=== PATIENT | male | born 1970 | race Caucasian/White ===

== ENCOUNTER 2022-02-26 18:45 | Inpatient (IN) | payer BC, MEDICARE, OTHER ==
[~2022-02-26] VITALS: Ht 172.7 cm; Wt 79.5 kg
[~2022-02-26 18:45] MED LIST: METO-539 PO; OLME1TAB8 PO; REN800 PO
[2022-02-26] MEDS ORDERED: MORPHINE SULFATE 4 MG/ML CPJ (NOT FOR IM USE) IV STA (19:06)
[2022-02-26] MEDS ORDERED: ONDANSETRON HCL 4MG/2ML INJ IV STA (19:06)
[2022-02-26] MEDS ORDERED: IOHEXOL-350 100 ML BOTTLE ONE (19:49)
[2022-02-26 19:52] LABS: INR 1.2; PROTHROMBIN TIME 13.2 sec (9.6-11.0)
[2022-02-26 19:59] LABS: HEMATOCRIT. 31.5 % (42.0-52.0); HEMOGLOBIN. 10.3 g/dL (14.0-18.0); MEAN CORPUSCULAR HEMOGLOBIN 29.9 pg (28.0-32.0); MEAN CORPUSCULAR VOLUME 91.3 fL (80.0-94.0); MEAN PLATELET VOLUME 8.5 fl (7.4-10.4); PLATELET 118 x1000/uL (130-400); RED BLOOD CELL COUNT 3.45 mill/uL (4.7-6.1); RED CELL DISTRIBUTION WIDTH 17.6 % (11.6-14.6)
[2022-02-26 20:49] LABS: CHLORIDE 95 mEq/L (98-107)
[2022-02-26] MEDS ORDERED: ONDANSETRON HCL 4MG/2ML INJ IV NR (21:45)
[2022-02-26] MEDS ORDERED: MORPHINE SULFATE 4 MG/ML CPJ (NOT FOR IM USE) IV NR (21:45)
[2022-02-26 22:15] LABS: PLATELET ESTIMATE DECREASED
[2022-02-27] MEDS ORDERED: SODIUM BICARBONATE 8.4% 1 MEQ/ML 50ML SYR IV SCH (09:15)
[2022-02-27] MEDS ORDERED: INSULIN REGULAR (HUMULIN R) 300UNITS/3ML VIAL IV SCH (09:15)
[2022-02-27] MEDS ORDERED: SODIUM POLYSTYRENE SULFONATE 15 G/60 ML BOT PO SCH (09:15)
[2022-02-27] MEDS ORDERED: MIDAZOLAM HCL 100 MG in DEXT 5% WATER 80 ML IV ONE (09:15)
[2022-02-27] MEDS ORDERED: DEXTROSE 50% WATER 50ML SYRINGE IV SCH (09:15)
[2022-02-27] MEDS ORDERED: ETOMIDATE 2MG/ML 10ML VIAL IV ONE (09:15)
[2022-02-27] MEDS ORDERED: ALBUTEROL (0.083%) 2.5MG/3ML NEB HHN SCH (09:15)
[2022-02-27] MEDS ORDERED: ROCURONIUM BROMIDE 10MG/ML VIAL 5ML IV ONE (09:15)
[2022-02-27] MEDS ORDERED: CALCIUM CHLORIDE 1GM/10ML SYR IV SCH (09:15)
[2022-02-27 09:20] LABS: BG BASE EXCESS 3.9 mmol/L (-2.0-2.0); BG CARBOXYHEMOGLOBIN 1.5 % (0.5-1.5); BG FRACTION INSPIRED OXYGEN 100; BG HCO3 ACT 38.1 mmol/L (22.0-26.0); BG METHEMOGLOBIN 0.3 % (0.0-1.5); BG OXYGEN SATURATION 87.8 % (92.0-98.5); BG OXYHEMOGLOBIN 86.2 % (94.0-97.0); BG PO2 83.7 mmHg (75.0-100.0); BG SAMPLE SITE RIGHT RADIAL; BG VENT MODE MASK - NRB
[2022-02-27] MEDS ORDERED: VECURONIUM BROMIDE 10 MG/VIAL IV ONE (10:15)
[2022-02-27 11:24] LABS: BG BASE EXCESS -1.1 mmol/L (-2.0-2.0); BG CARBOXYHEMOGLOBIN 1.1 % (0.5-1.5); BG DEOXYHEMOGLOBIN 0.3 % (0.0-5.0); BG FRACTION INSPIRED OXYGEN 100; BG HCO3 ACT 24.7 mmol/L (22.0-26.0); BG METHEMOGLOBIN 0.2 % (0.0-1.5); BG OXYGEN SATURATION 99.7 % (92.0-98.5); BG OXYHEMOGLOBIN 98.4 % (94.0-97.0); BG PCO2 45.5 mmHg (35.0-45.0); BG PH 7.352 (7.350-7.450); BG PO2 177.7 mmHg (75.0-100.0); BG SAMPLE SITE LEFT RADIAL; BG TOTAL RESPIRATORY RATE 20 b/min; BG VENT MODE VENT - AC
[2022-02-27 11:30] LABS: HEMATOCRIT 33.3 % (42.0-52.0); MEAN CORPUSCULAR VOLUME 94.3 fL (80.0-94.0); PLATELET 116 x1000/uL (130-400); RED BLOOD CELL COUNT 3.53 mill/uL (4.7-6.1); RED CELL DISTRIBUTION WIDTH 17.8 % (11.6-14.6)
[2022-02-27] MEDS: FENTANYL 2500MCG/250ML PMX 250 ML IV NR (12:30)
[2022-02-27] MEDS: METHYLPREDNISOLONE SOD SUCC 40 MG/ML VIAL IV SCH ×2 (14:45→22:21)
[2022-02-27] MEDS: PANTOPRAZOLE SODIUM 40 MG/VIAL IV SCH (15:00)
[2022-02-27] MEDS: ALBUTEROL (0.083%) 2.5MG/3ML NEB INH SCH ×2 (16:00→20:31)
[2022-02-27 16:18] LABS: HEPATITIS B SURFACE ANTIGEN NEGATIVE
[2022-02-27] MEDS ORDERED: SODIUM POLYSTYRENE SULFONATE 15 G/60 ML BOT PO NR (18:15)
[2022-02-27 18:16] LABS: CHLORIDE 95 mEq/L (98-107)
[2022-02-27] MEDS ORDERED: DEXTROSE 50% WATER 50ML SYRINGE IV ONE (18:35)
[2022-02-27] MEDS ORDERED: DEXTROSE 50% WATER 50ML SYRINGE IV NR ×3 (18:45→22:30)
[2022-02-27] MEDS ORDERED: DEXT 10% WATER 1,000 ML IV SCH (19:00)
[2022-02-27] MEDS: DEXT 10% WATER 1,000 ML IV SCH (22:44)
[2022-02-27] MEDS ORDERED: DEXTROSE 50% WATER 50ML SYRINGE IV PRN (22:45)
[2022-02-27] MEDS ORDERED: PIPERACILLIN/TAZOBACTAM 3.375GM/50ML PREMIX IV SCH (22:45)
[2022-02-27] MEDS ORDERED: VANCOMYCIN 1G PREMIX 200 ML IV NR (23:00)
[2022-02-27] MEDS ORDERED: PIPERACILLIN/TAZ 3.375G PREMIX 50 ML IV NR (23:00)
[2022-02-27] MEDS: BLOOD SUGAR DIAGNOSTIC STRIP TEST SCH (23:16)
[2022-02-28] VITALS (31 sets, daily range): BP systolic 57–165; BP diastolic 35–105
[2022-02-28] MEDS: ALBUTEROL (0.083%) 2.5MG/3ML NEB INH SCH ×6 (00:34→20:41)
[2022-02-28] MEDS: BLOOD SUGAR DIAGNOSTIC STRIP TEST SCH ×12 (01:11→23:00)
[2022-02-28 05:25] LABS: HEMATOCRIT 29.9 % (42.0-52.0); HEMOGLOBIN 9.9 g/dL (14.0-18.0); MEAN CORPUSCULAR HEMOGLOBIN 30.2 pg (28.0-32.0); MEAN CORPUSCULAR VOLUME 91.4 fL (80.0-94.0); PLATELET 103 x1000/uL (130-400); RED BLOOD CELL COUNT 3.27 mill/uL (4.7-6.1); RED CELL DISTRIBUTION WIDTH 17.6 % (11.6-14.6)
[2022-02-28 05:38] LABS: CHLORIDE 94 mEq/L (98-107)
[2022-02-28 05:50] LABS: HDL CHOLESTEROL 41 mg/dL (40-59); LDL CHOLESTEROL 43 mg/dL (5-100); PHOSPHORUS 4.4 mg/dL (2.5-4.9); TOTAL IRON BINDING CAPACITY 172 ug/dL (250-450)
[2022-02-28] MEDS: METHYLPREDNISOLONE SOD SUCC 40 MG/ML VIAL IV SCH ×3 (06:23→22:00)
[2022-02-28] MEDS ORDERED: MIDAZOLAM 100MG/100ML PMX 100 ML IV PRN ×2 (08:00)
[2022-02-28] MEDS: MIDAZOLAM HCL 100 MG in SODIUM CHLORIDE 0.9% 100 ML IV PRN ×2 (08:21→10:00)
[2022-02-28] MEDS ORDERED: MIDAZOLAM HCL 100 MG in SODIUM CHLORIDE 0.9% 100 ML IV PRN (08:30)
[2022-02-28] MEDS ORDERED: PIPERACILLIN/TAZOBACTAM 3.375 G in DEXTROSE 5% WATER 50 ML IV SCH (09:00)
[2022-02-28] MEDS: PANTOPRAZOLE SODIUM 40 MG/VIAL IV SCH (09:53)
[2022-02-28 09:57] LABS: BG BASE EXCESS -1.3 mmol/L (-2.0-2.0); BG CARBOXYHEMOGLOBIN 0.3 % (0.5-1.5); BG DEOXYHEMOGLOBIN 3.3 % (0.0-5.0); BG FRACTION INSPIRED OXYGEN 100; BG HCO3 ACT 23.2 mmol/L (22.0-26.0); BG OXYGEN SATURATION 96.7 % (92.0-98.5); BG OXYHEMOGLOBIN 96.4 % (94.0-97.0); BG PCO2 37.8 mmHg (35.0-45.0); BG PH 7.405 (7.350-7.450); BG PO2 91.1 mmHg (75.0-100.0); BG SAMPLE SITE RIGHT RADIAL; BG TOTAL HEMOGLOBIN 9.9 g/dL (12.0-18.0); BG VENT MODE VENT - AC
[2022-02-28] MEDS: DEXT 10% WATER 1,000 ML IV SCH (10:45)
[2022-02-28] MEDS ORDERED: LIDOCAINE HCL 1% 10 MG/ML 10ML VIAL ONE ×2 (11:38→12:46)
[2022-02-28] MEDS ORDERED: BUPIVACAINE HCL/PF 0.5% (5MG/ML) 10ML ONE (11:39)
[2022-02-28] MEDS ORDERED: SKIN ADHESIVE 0.7 GM EA TOP ONE (11:39)
[2022-02-28] MEDS ORDERED: HEPARIN SODIUM 1,000 UNIT/1ML VIAL IV ONE (11:39)
[2022-02-28] MEDS ORDERED: POLYMYXIN B SULFATE 500000 UNITS/VIAL ONE (11:40)
[2022-02-28] MEDS ORDERED: BACITRACIN 15GM TUBE TOP ONE (11:40)
[2022-02-28] MEDS ORDERED: PAPAVERINE HCL 30 MG/ML 2ML IV ONE (11:40)
[2022-02-28 11:59] LABS: CHLORIDE 97 mEq/L (98-107)
[2022-02-28] MEDS ORDERED: THROMBIN (BOVINE) 5000 UNITS/VIAL TOP ONE (12:21)
[2022-02-28] MEDS ORDERED: PHENYLEPHRINE HCL 10 MG/ML 1ML (IV VIAL) IV ONE (12:32)
[2022-02-28] MEDS ORDERED: ROCURONIUM BROMIDE 10MG/ML VIAL 5ML IV ONE (12:34)
[2022-02-28] MEDS: FENTANYL 2500MCG/250ML PMX 250 ML IV NR (13:43)
[2022-02-28] MEDS ORDERED: FENTANYL 2500MCG/250ML PMX 250 ML IV PRN (17:38)
[2022-02-28] MEDS ORDERED: VANCOMYCIN 750MG PREMIX 150 ML IV NR (18:00)
[2022-02-28] MEDS: PIPERACILLIN/TAZOBACTAM 3.375 G in DEXTROSE 5% WATER 50 ML IV SCH (21:14)
[2022-03-01] VITALS (82 sets, daily range): BP systolic 63–166; BP diastolic 34–120
[2022-03-01] MEDS: ALBUTEROL (0.083%) 2.5MG/3ML NEB INH SCH ×7 (00:35→23:56)
[2022-03-01] MEDS: DEXT 10% WATER 1,000 ML IV SCH (01:38)
[2022-03-01] MEDS: BLOOD SUGAR DIAGNOSTIC STRIP TEST SCH ×6 (01:38→17:03)
[2022-03-01 04:44] LABS: HEMATOCRIT 30.2 % (42.0-52.0); HEMOGLOBIN 10.2 g/dL (14.0-18.0); MEAN CORPUSCULAR HEMOGLOBIN 30.6 pg (28.0-32.0); MEAN CORPUSCULAR VOLUME 90.7 fL (80.0-94.0); PLATELET 101 x1000/uL (130-400); RED BLOOD CELL COUNT 3.33 mill/uL (4.7-6.1); RED CELL DISTRIBUTION WIDTH 17.7 % (11.6-14.6)
[2022-03-01 05:06] LABS: CHLORIDE 91 mEq/L (98-107)
[2022-03-01 05:18] LABS: PHOSPHORUS 6.2 mg/dL (2.5-4.9)
[2022-03-01] MEDS: METHYLPREDNISOLONE SOD SUCC 40 MG/ML VIAL IV SCH ×4 (06:00→21:56)
[2022-03-01 07:59] LABS: BG BASE EXCESS 0.3 mmol/L (-2.0-2.0); BG CARBOXYHEMOGLOBIN 0.3 % (0.5-1.5); BG DEOXYHEMOGLOBIN 1.8 % (0.0-5.0); BG HCO3 ACT 24.3 mmol/L (22.0-26.0); BG METHEMOGLOBIN 0.1 % (0.0-1.5); BG OXYGEN SATURATION 98.2 % (92.0-98.5); BG OXYHEMOGLOBIN 97.8 % (94.0-97.0); BG PCO2 36.9 mmHg (35.0-45.0); BG PH 7.436 (7.350-7.450); BG PO2 110.7 mmHg (75.0-100.0); BG SAMPLE SITE RIGHT RADIAL; BG TOTAL HEMOGLOBIN 11.4 g/dL (12.0-18.0); BG VENT MODE VENT - AC
[2022-03-01] MEDS ORDERED: DEXTROSE 50% WATER 50ML SYRINGE IV PRN (09:00)
[2022-03-01] MEDS: PANTOPRAZOLE SODIUM 40 MG/VIAL IV SCH (09:36)
[2022-03-01] MEDS: PIPERACILLIN/TAZOBACTAM 3.375 G in DEXTROSE 5% WATER 50 ML IV SCH ×2 (09:37→21:00)
[2022-03-01 12:28] LABS: BG BASE EXCESS 2.2 mmol/L (-2.0-2.0); BG CARBOXYHEMOGLOBIN 0.8 % (0.5-1.5); BG DEOXYHEMOGLOBIN 8.3 % (0.0-5.0); BG HCO3 ACT 26.3 mmol/L (22.0-26.0); BG METHEMOGLOBIN 0.1 % (0.0-1.5); BG OXYGEN SATURATION 91.6 % (92.0-98.5); BG OXYHEMOGLOBIN 90.8 % (94.0-97.0); BG PCO2 39.5 mmHg (35.0-45.0); BG PH 7.442 (7.350-7.450); BG PO2 64.1 mmHg (75.0-100.0); BG SAMPLE SITE RIGHT RADIAL; BG TOTAL HEMOGLOBIN 12.1 g/dL (12.0-18.0); BG VENT MODE VENT - AC
[2022-03-01 14:26] LABS: BG CARBOXYHEMOGLOBIN 0.6 % (0.5-1.5); BG DEOXYHEMOGLOBIN 5.6 % (0.0-5.0); BG FRACTION INSPIRED OXYGEN 40; BG HCO3 ACT 25.7 mmol/L (22.0-26.0); BG METHEMOGLOBIN 0.1 % (0.0-1.5); BG OXYGEN SATURATION 94.4 % (92.0-98.5); BG OXYHEMOGLOBIN 93.7 % (94.0-97.0); BG PCO2 41.5 mmHg (35.0-45.0); BG SAMPLE SITE RIGHT RADIAL; BG TOTAL RESPIRATORY RATE 10 b/min; BG VENT MODE VENT - CPAP
[2022-03-01] MEDS: HYDRALAZINE HCL 25MG TABLET PO SCH ×2 (15:07→21:56)
[2022-03-01] MEDS: MORPHINE SULFATE 2 MG/ML CPJ (NOT FOR IM USE) IV PRN (21:57)
[2022-03-01] MEDS ORDERED: NALOXONE HCL 0.4MG/ML VIAL IV PRN (22:00)
[2022-03-01] MEDS ORDERED: MORPHINE SULFATE 4 MG/ML CPJ (NOT FOR IM USE) IV NR (22:30)
[2022-03-02] VITALS (29 sets, daily range): BP systolic 103–166; BP diastolic 19–145
[2022-03-02] MEDS: BLOOD SUGAR DIAGNOSTIC STRIP TEST SCH ×4 (00:48→18:38)
[2022-03-02] MEDS: ALBUTEROL (0.083%) 2.5MG/3ML NEB INH SCH ×3 (04:13→17:09)
[2022-03-02] MEDS: MORPHINE SULFATE 2 MG/ML CPJ (NOT FOR IM USE) IV PRN ×3 (04:15→17:53)
[2022-03-02 05:17] LABS: HEMATOCRIT. 32.2 % (42.0-52.0); HEMOGLOBIN. 10.6 g/dL (14.0-18.0); MEAN CORPUSCULAR HEMOGLOBIN 30.4 pg (28.0-32.0); MEAN CORPUSCULAR VOLUME 91.8 fL (80.0-94.0); MEAN PLATELET VOLUME 8.4 fl (7.4-10.4); PLATELET 98 x1000/uL (130-400); RED CELL DISTRIBUTION WIDTH 17.5 % (11.6-14.6)
[2022-03-02 05:35] LABS: PHOSPHORUS 6.2 mg/dL (2.5-4.9)
[2022-03-02] MEDS: METHYLPREDNISOLONE SOD SUCC 40 MG/ML VIAL IV SCH (06:17)
[2022-03-02] MEDS: HYDRALAZINE HCL 25MG TABLET PO SCH ×2 (06:17→13:01)
[2022-03-02 07:45] LABS: NUCLEATED RED BLOOD CELLS 1 /100 WBC; PLATELET ESTIMATE DECREASED
[2022-03-02 08:39] LABS: BG BASE EXCESS 2.1 mmol/L (-2.0-2.0); BG CARBOXYHEMOGLOBIN 0.5 % (0.5-1.5); BG DEOXYHEMOGLOBIN 3.5 % (0.0-5.0); BG FRACTION INSPIRED OXYGEN 24; BG HCO3 ACT 26.4 mmol/L (22.0-26.0); BG METHEMOGLOBIN 0.2 % (0.0-1.5); BG OXYGEN SATURATION 96.5 % (92.0-98.5); BG OXYHEMOGLOBIN 95.8 % (94.0-97.0); BG PCO2 40.1 mmHg (35.0-45.0); BG PH 7.436 (7.350-7.450); BG PO2 83.9 mmHg (75.0-100.0); BG SAMPLE SITE RIGHT BRACHIAL; BG TOTAL HEMOGLOBIN 11.5 g/dL (12.0-18.0); BG VENT MODE NASAL CANNULA
[2022-03-02] MEDS: SEVELAMER CARBONATE 800 MG TABLET PO SCH ×3 (08:50→18:40)
[2022-03-02] MEDS: PANTOPRAZOLE SODIUM 40 MG/VIAL IV SCH (08:50)
[2022-03-02] MEDS: FOLIC ACID/VITAMIN B COMP W-C TABLET PO SCH (08:50)
[2022-03-02] MEDS: PIPERACILLIN/TAZOBACTAM 3.375 G in DEXTROSE 5% WATER 50 ML IV SCH ×2 (08:51→22:53)
[2022-03-02] MEDS: HYDRALAZINE HCL 50MG TABLET PO SCH (22:32)
[2022-03-03] VITALS (13 sets, daily range): BP systolic 118–167; BP diastolic 62–104
[2022-03-03] MEDS: BLOOD SUGAR DIAGNOSTIC STRIP TEST SCH ×5 (00:36→21:01)
[2022-03-03] MEDS: MORPHINE SULFATE 2 MG/ML CPJ (NOT FOR IM USE) IV PRN ×3 (01:56→23:53)
[2022-03-03] MEDS: SEVELAMER CARBONATE 800 MG TABLET PO SCH ×3 (07:23→17:22)
[2022-03-03 07:25] LABS: HEMATOCRIT. 32.3 % (42.0-52.0); HEMOGLOBIN. 10.7 g/dL (14.0-18.0); MEAN CORPUSCULAR VOLUME 91.1 fL (80.0-94.0); MEAN PLATELET VOLUME 8.3 fl (7.4-10.4); PLATELET 97 x1000/uL (130-400); RED BLOOD CELL COUNT 3.55 mill/uL (4.7-6.1); RED CELL DISTRIBUTION WIDTH 18.1 % (11.6-14.6)
[2022-03-03 07:56] LABS: PHOSPHORUS 7.2 mg/dL (2.5-4.9)
[2022-03-03] MEDS: ALBUTEROL (0.083%) 2.5MG/3ML NEB INH SCH ×3 (08:56→17:58)
[2022-03-03] MEDS: FOLIC ACID/VITAMIN B COMP W-C TABLET PO SCH (10:26)
[2022-03-03] MEDS: PREDNISONE 20MG TABLET PO SCH (10:26)
[2022-03-03] MEDS: PANTOPRAZOLE SODIUM 40 MG/VIAL IV SCH (10:26)
[2022-03-03] MEDS: PIPERACILLIN/TAZOBACTAM 3.375 G in DEXTROSE 5% WATER 50 ML IV SCH ×2 (10:26→21:09)
[2022-03-03 13:16] LABS: PLATELET ESTIMATE DECREASED
[2022-03-03] MEDS: HYDRALAZINE HCL 50MG TABLET PO SCH ×2 (14:00→22:02)
[2022-03-03] MEDS ORDERED: DIPHENHYDRAMINE 50MG/ML VIAL IV NR (14:30)
[2022-03-03] MEDS ORDERED: VANCOMYCIN 500MG PREMIX 100 ML IV NR (15:00)
[2022-03-04] VITALS (7 sets, daily range): BP systolic 151–194; BP diastolic 64–100
[2022-03-04] MEDS ORDERED: METH-818 MT (00:14)
[2022-03-04] MEDS ORDERED: METHADONE HCL 5MG/5ML ORAL SOLN UDC PO SCH (00:15)
[2022-03-04] MEDS ORDERED: METHADONE HCL 10MG TABLET PO SCH ×2 (02:15)
[2022-03-04] MEDS ORDERED: NON FORMULARY PATIENT HOME MED XX SCH (02:30)
[2022-03-04] MEDS ORDERED: *PATIENT'S OWN MEDICATION STORAGE XX SCH (02:30)
[2022-03-04] MEDS: HYDRALAZINE HCL 50MG TABLET PO SCH ×3 (05:32→20:53)
[2022-03-04] MEDS: BLOOD SUGAR DIAGNOSTIC STRIP TEST SCH ×3 (05:32→20:46)
[2022-03-04 07:20] LABS: BASOPHILS % 0.1 % (0.0-2.0); EOSINOPHILS % 0.1 % (0.0-5.0); HEMATOCRIT. 35.7 % (42.0-52.0); HEMOGLOBIN. 11.9 g/dL (14.0-18.0); LYMPHOCYTES % 7.1 % (20.0-50.0); MEAN CORPUSCULAR HEMOGLOBIN 30.3 pg (28.0-32.0); MEAN CORPUSCULAR VOLUME 91.3 fL (80.0-94.0); MEAN PLATELET VOLUME 8.2 fl (7.4-10.4); MONOCYTES % 8.3 % (2.0-8.0); NEUTROPHILS % 84.4 % (40.0-76.0); PLATELET 100 x1000/uL (130-400); RED BLOOD CELL COUNT 3.92 mill/uL (4.7-6.1)
[2022-03-04] MEDS: SEVELAMER CARBONATE 800 MG TABLET PO SCH ×3 (07:40→17:40)
[2022-03-04] MEDS: FOLIC ACID/VITAMIN B COMP W-C TABLET PO SCH (08:19)
[2022-03-04] MEDS: PREDNISONE 20MG TABLET PO SCH (08:19)
[2022-03-04] MEDS: ALBUTEROL (0.083%) 2.5MG/3ML NEB INH SCH (08:28)
[2022-03-04] MEDS: PANTOPRAZOLE SODIUM 40 MG/VIAL IV SCH (08:29)
[2022-03-04] MEDS: PIPERACILLIN/TAZOBACTAM 3.375 G in DEXTROSE 5% WATER 50 ML IV SCH ×2 (08:30→21:11)
[2022-03-04] MEDS: HYDRALAZINE 20MG/ML VIAL IV PRN ×2 (08:42→13:15)
[2022-03-04] MEDS ORDERED: LIDOCAINE HCL 1% 20ML VIAL (Pyxis) INJ ONE (09:22)
[2022-03-04] MEDS ORDERED: BUPIVACAINE HCL/PF 0.5% (5MG/ML) 10ML ONE (09:23)
[2022-03-04] MEDS ORDERED: HEPARIN SODIUM 1,000 UNIT/1ML VIAL IV ONE (09:23)
[2022-03-04] MEDS ORDERED: THROMBIN (BOVINE) 5000 UNITS/VIAL TOP ONE (09:23)
[2022-03-04] MEDS ORDERED: GENTAMICIN SULF 40MG/ML 2ML VIAL ONE (09:24)
[2022-03-04] MEDS ORDERED: POLYMYXIN B SULFATE 500000 UNITS/VIAL ONE (09:24)
[2022-03-04] MEDS ORDERED: SKIN ADHESIVE 0.7 GM EA TOP ONE (09:26)
[2022-03-04] MEDS ORDERED: BACITRACIN 15GM TUBE TOP ONE (09:26)
[2022-03-04] MEDS ORDERED: ALBUTEROL (0.083%) 2.5MG/3ML NEB INH PRN (14:15)
[2022-03-04] MEDS ORDERED: MIDAZOLAM HCL 2 MG/2 ML VIAL ONE (15:30)
[2022-03-04] MEDS ORDERED: PROPOFOL 200MG/20ML VIAL IV ONE (15:30)
[2022-03-04] MEDS ORDERED: MORPHINE SULFATE 4 MG/ML CPJ (NOT FOR IM USE) IV PRN (15:30)
[2022-03-04] MEDS ORDERED: FENTANYL CITRATE/PF 50MCG/ML 2ML VIAL ONE (15:47)
[2022-03-04] MEDS ORDERED: CEFAZOLIN SODIUM 1000MG/VIAL ONE (15:57)
[2022-03-04] MEDS ORDERED: DEXAMETHASONE 4MG/ML 1ML VIAL ONE (15:57)
[2022-03-04] MEDS ORDERED: ONDANSETRON HCL 4MG/2ML INJ ONE (15:57)
[2022-03-04] MEDS ORDERED: HYDROMORPHONE HCL/PF 2MG/ML CPJ IV PRN (16:00)
[2022-03-04] MEDS ORDERED: FENTANYL CITRATE/PF 50MCG/ML 2ML VIAL IV PRN (16:00)
[2022-03-04] MEDS ORDERED: EPHEDRINE SULFATE 50MG/ML VIAL ONE (16:19)
[2022-03-04] MEDS ORDERED: PHENYLEPHRINE HCL 10 MG/ML 1ML (IV VIAL) IV ONE (16:19)
[2022-03-04] MEDS ORDERED: HEPARIN 1000 UNITS/ML 10ML ONE (16:20)
[2022-03-04] MEDS: METHADONE HCL 10MG TABLET PO SCH (20:37)
[2022-03-04] MEDS: MORPHINE SULFATE 2 MG/ML CPJ (NOT FOR IM USE) IV PRN (22:38)
[2022-03-05] VITALS (17 sets, daily range): BP systolic 127–159; BP diastolic 49–93
[2022-03-05] MEDS: BLOOD SUGAR DIAGNOSTIC STRIP TEST SCH ×3 (05:04→16:26)
[2022-03-05] MEDS: HYDRALAZINE HCL 50MG TABLET PO SCH ×2 (05:11→13:27)
[2022-03-05] MEDS: PANTOPRAZOLE SODIUM 40 MG/VIAL IV SCH (08:36)
[2022-03-05] MEDS: SEVELAMER CARBONATE 800 MG TABLET PO SCH ×3 (08:36→16:05)
[2022-03-05] MEDS: FOLIC ACID/VITAMIN B COMP W-C TABLET PO SCH (08:36)
[2022-03-05] MEDS: HYDROMORPHONE HCL/PF 2MG/ML CPJ IV PRN ×3 (08:36→23:39)
[2022-03-05] MEDS: METHADONE HCL 10MG TABLET PO SCH ×2 (08:37→20:37)
[2022-03-05] MEDS: PIPERACILLIN/TAZOBACTAM 3.375 G in DEXTROSE 5% WATER 50 ML IV SCH ×2 (08:37→20:44)
[2022-03-05 08:49] LABS: HEMATOCRIT. 28.6 % (42.0-52.0); HEMOGLOBIN. 9.5 g/dL (14.0-18.0); MEAN CORPUSCULAR HEMOGLOBIN 30.2 pg (28.0-32.0); MEAN CORPUSCULAR VOLUME 90.7 fL (80.0-94.0); MEAN PLATELET VOLUME 8.3 fl (7.4-10.4); PLATELET 87 x1000/uL (130-400); RED BLOOD CELL COUNT 3.15 mill/uL (4.7-6.1); RED CELL DISTRIBUTION WIDTH 17.8 % (11.6-14.6)
[2022-03-05 14:21] LABS: PLATELET ESTIMATE DECREASED
[2022-03-05] MEDS: DIPHENHYDRAMINE 50MG/ML VIAL IV PRN (16:05)
[2022-03-05] MEDS ORDERED: VANCOMYCIN 500MG PREMIX 100 ML IV NR (21:00)
[2022-03-06] VITALS: BP 143/88
[2022-03-06] MEDS: HYDRALAZINE HCL 50MG TABLET PO SCH ×4 (02:07→21:06)
[2022-03-06 04:00] VITALS: BP 161/67
[2022-03-06] MEDS: BLOOD SUGAR DIAGNOSTIC STRIP TEST SCH ×5 (05:17→23:12)
[2022-03-06] MEDS: SEVELAMER CARBONATE 800 MG TABLET PO SCH ×3 (05:17→16:51)
[2022-03-06] MEDS: HYDROMORPHONE HCL/PF 2MG/ML CPJ IV PRN ×4 (05:35→23:44)
[2022-03-06 06:35] LABS: BASOPHILS % 0.2 % (0.0-2.0); EOSINOPHILS % 2.6 % (0.0-5.0); HEMOGLOBIN. 9.9 g/dL (14.0-18.0); LYMPHOCYTES % 9.1 % (20.0-50.0); MEAN CORPUSCULAR HEMOGLOBIN 30.6 pg (28.0-32.0); MEAN CORPUSCULAR VOLUME 89.3 fL (80.0-94.0); MEAN PLATELET VOLUME 8.2 fl (7.4-10.4); MONOCYTES % 9.9 % (2.0-8.0); NEUTROPHILS % 78.2 % (40.0-76.0); PLATELET 99 x1000/uL (130-400); RED BLOOD CELL COUNT 3.25 mill/uL (4.7-6.1); RED CELL DISTRIBUTION WIDTH 17.9 % (11.6-14.6)
[2022-03-06] MEDS: PANTOPRAZOLE SODIUM 40 MG/VIAL IV SCH (08:36)
[2022-03-06] MEDS: PIPERACILLIN/TAZOBACTAM 3.375 G in DEXTROSE 5% WATER 50 ML IV SCH ×2 (08:36→21:03)
[2022-03-06] MEDS: FOLIC ACID/VITAMIN B COMP W-C TABLET PO SCH (08:36)
[2022-03-06] MEDS: METHADONE HCL 10MG TABLET PO SCH ×2 (08:37→20:55)
[2022-03-06] MEDS: HYDRALAZINE 20MG/ML VIAL IV PRN (08:38)
[2022-03-06 08:48] VITALS: BP 192/66
[2022-03-06 12:20] VITALS: BP 158/58
[2022-03-06 16:00] VITALS: BP 141/65
[2022-03-06 20:00] VITALS: BP 134/52
[2022-03-07] VITALS (17 sets, daily range): BP systolic 132–195; BP diastolic 47–99
[2022-03-07] MEDS: BLOOD SUGAR DIAGNOSTIC STRIP TEST SCH ×3 (05:07→18:00)
[2022-03-07] MEDS: HYDRALAZINE HCL 50MG TABLET PO SCH ×3 (05:16→22:03)
[2022-03-07] MEDS: HYDROMORPHONE HCL/PF 2MG/ML CPJ IV PRN ×3 (05:50→18:30)
[2022-03-07 06:42] LABS: HEMATOCRIT 30.9 % (42.0-52.0); HEMOGLOBIN 10.2 g/dL (14.0-18.0); MEAN CORPUSCULAR HEMOGLOBIN 30.1 pg (28.0-32.0); MEAN CORPUSCULAR VOLUME 90.9 fL (80.0-94.0); PLATELET 95 x1000/uL (130-400); RED BLOOD CELL COUNT 3.39 mill/uL (4.7-6.1); RED CELL DISTRIBUTION WIDTH 18.4 % (11.6-14.6)
[2022-03-07 06:58] LABS: PHOSPHORUS 6.7 mg/dL (2.5-4.9)
[2022-03-07] MEDS: SEVELAMER CARBONATE 800 MG TABLET PO SCH ×3 (08:27→17:06)
[2022-03-07] MEDS: FOLIC ACID/VITAMIN B COMP W-C TABLET PO SCH (08:27)
[2022-03-07] MEDS: PIPERACILLIN/TAZOBACTAM 3.375 G in DEXTROSE 5% WATER 50 ML IV SCH ×2 (08:27→22:01)
[2022-03-07] MEDS: PANTOPRAZOLE SODIUM 40 MG/VIAL IV SCH (08:28)
[2022-03-07] MEDS: METHADONE HCL 10MG TABLET PO SCH ×2 (08:28→22:03)
[2022-03-07] MEDS: DIPHENHYDRAMINE 50MG/ML VIAL IV PRN (09:56)
[2022-03-07] MEDS ORDERED: DOXY100C5 MT (10:30)
[2022-03-07] MEDS ORDERED: DESMOPRESSIN ACETATE IVPB 24 MCG in SODIUM CHLORIDE 0.9% 50 ML IV NR (11:00)
[2022-03-07] MEDS ORDERED: VANCOMYCIN 500MG PREMIX 100 ML IV NR (14:00)
[2022-03-07] MEDS: CLONIDINE 0.1MG TABLET PO PRN (22:50)
[2022-03-08] VITALS (7 sets, daily range): BP systolic 144–200; BP diastolic 62–85
[2022-03-08] MEDS: HYDRALAZINE 20MG/ML VIAL IV PRN (02:07)
[2022-03-08] MEDS: HYDROMORPHONE HCL/PF 2MG/ML CPJ IV PRN ×3 (02:07→13:29)
[2022-03-08] MEDS: BLOOD SUGAR DIAGNOSTIC STRIP TEST SCH ×4 (06:00→18:00)
[2022-03-08] MEDS: HYDRALAZINE HCL 50MG TABLET PO SCH (06:44)
[2022-03-08] MEDS: PANTOPRAZOLE SODIUM 40 MG/VIAL IV SCH (09:11)
[2022-03-08] MEDS: PIPERACILLIN/TAZOBACTAM 3.375 G in DEXTROSE 5% WATER 50 ML IV SCH ×2 (09:12→20:20)
[2022-03-08] MEDS: FOLIC ACID/VITAMIN B COMP W-C TABLET PO SCH (09:12)
[2022-03-08] MEDS: CLONIDINE 0.1MG TABLET PO PRN (09:12)
[2022-03-08] MEDS: SEVELAMER CARBONATE 800 MG TABLET PO SCH ×2 (09:12→16:54)
[2022-03-08] MEDS: METHADONE HCL 10MG TABLET PO SCH ×2 (09:14→20:21)
[2022-03-08] MEDS: NIFEDIPINE 10MG CAPSULE PO SCH ×2 (13:23→20:22)
[2022-03-08] MEDS: HYDRALAZINE HCL 25MG TABLET PO SCH ×2 (13:23→20:22)
[2022-03-08] MEDS ORDERED: LABETALOL 5MG/ML SYR 20 MG/4 ML SYRINGE IV NR (15:00)
[2022-03-08] MEDS ORDERED: PRO1 PO ×2 (15:02)
[2022-03-08] MEDS ORDERED: HYDR-4134 PO ×2 (15:02)
== END 2022-03-08 22:20 | disposition home or self-care (01) | DRG 252 ==
LOC: ER 18:52 → MICUSO 23:37 → EDBEDREQTM 23:45 → EDBEDREQ 23:45 → EDBEDREQSVC 02-27 09:30 → EDBEDREQTM 02-27 09:30 → MICUNO 02-28 13:03 → 8WST 03-02 14:48
PROVIDERS: ADMIT Internal Medicine; ATTEND Internal Medicine
PROC: 03170ZD Bypass Right Brachial Artery to Upper Arm Vein, Open Approach (ICD-10-PCS; 2022-02-26)
PROC: 06HM33Z Insertion of Infusion Device into Right Femoral Vein, Percutaneous Approach (ICD-10-PCS; 2022-02-26)
PROC: 5A1945Z Respiratory Ventilation, 24-96 Consecutive Hours (ICD-10-PCS; principal; 2022-02-27)
PROC: 0BH17EZ Insertion of Endotracheal Airway into Trachea, Via Natural or Artificial Opening (ICD-10-PCS; 2022-02-27)
PROC: 05LF0ZZ Occlusion of Left Cephalic Vein, Open Approach (ICD-10-PCS; 2022-02-28)
PROC: 5A1D70Z Performance of Urinary Filtration, Intermittent, Less than 6 Hours Per Day (ICD-10-PCS; 2022-02-28)
PROC: 06HM33Z Insertion of Infusion Device into Right Femoral Vein, Percutaneous Approach (ICD-10-PCS; 2022-03-01)
PROC: 5A1D70Z Performance of Urinary Filtration, Intermittent, Less than 6 Hours Per Day (ICD-10-PCS; 2022-03-01)
PROC: 5A1D70Z Performance of Urinary Filtration, Intermittent, Less than 6 Hours Per Day (ICD-10-PCS; 2022-03-03)
PROC: 5A1D70Z Performance of Urinary Filtration, Intermittent, Less than 6 Hours Per Day (ICD-10-PCS; 2022-03-05)
PROC: 5A1D70Z Performance of Urinary Filtration, Intermittent, Less than 6 Hours Per Day (ICD-10-PCS; 2022-03-07)
DX: T82.898A Other specified complication of vascular prosthetic devices, implants and grafts, initial encounter (principal); J96.02 Acute respiratory failure with hypercapnia; N18.6 End stage renal disease; I82.B12 Acute embolism and thrombosis of left subclavian vein; I12.0 Hypertensive chronic kidney disease with stage 5 chronic kidney disease or end stage renal disease; N17.9 Acute kidney failure, unspecified; J81.1 Chronic pulmonary edema; J90 Pleural effusion, not elsewhere classified; E11.22 Type 2 diabetes mellitus with diabetic chronic kidney disease; E87.5 Hyperkalemia; E87.70 Fluid overload, unspecified; Z20.822 Contact with and (suspected) exposure to COVID-19; I16.0 Hypertensive urgency; Z99.2 Dependence on renal dialysis; I51.7 Cardiomegaly; I25.10 Atherosclerotic heart disease of native coronary artery without angina pectoris; E11.649 Type 2 diabetes mellitus with hypoglycemia without coma; D63.1 Anemia in chronic kidney disease; Z86.718 Personal history of other venous thrombosis and embolism; Z95.1 Presence of aortocoronary bypass graft; Y92.89 Other specified places as the place of occurrence of the external cause; Y83.9 Surgical procedure, unspecified as the cause of abnormal reaction of the patient, or of later complication, without mention of misadventure at the time of the procedure
CPT/HCPCS: 31500; 36415; 36556; 36600; 71045; 73206; 76937; 80048; 80053; 80061; 80202; 82375; 82728; 82805; 82962; 83036; 83540; 83550; 83605; 83735; 84100; 84132; 84145; 85025; 85027; 86705; 86709; 86803; 87340; 87426; 88300; 90935; 93005; 93306; 93971; 94003; 94640; 97162; 97166; 99285; A4565; C1725; C1750; C1752; C1769; C1893; C9113; J0360; J0690; J1100; J1170; J1200; J1580; J1644; J1815; J2250; J2270; J2370; J2405; J2440; J2543; J2597; J2704; J2920; J3010; J3370; J3490; J7030; J7050; J7060; J7512; L8514; Q9967

== ENCOUNTER 2022-03-28 00:12 | Inpatient (IN) | payer BC, MEDICARE ==
[2022-03-28] VITALS: BP 139/66
[~2022-03-28] VITALS: Ht 172.7 cm; Wt 77.2 kg
[~2022-03-28 00:12] MED LIST changes: +DOXY100C5 MT; +METH-818 MT
[2022-03-28] MEDS ORDERED: MORPHINE SULFATE 4 MG/ML CPJ (NOT FOR IM USE) IV NR (05:24)
[2022-03-28 05:43] LABS: MEAN CORPUSCULAR HEMOGLOBIN 30.4 pg (28.0-32.0); MEAN CORPUSCULAR VOLUME 91.3 fL (80.0-94.0); MEAN PLATELET VOLUME 7.3 fl (7.4-10.4); PLATELET 215 x1000/uL (130-400); RED BLOOD CELL COUNT 2.96 mill/uL (4.7-6.1); RED CELL DISTRIBUTION WIDTH 17.5 % (11.6-14.6)
[2022-03-28 06:03] LABS: CHLORIDE 100 mEq/L (98-107)
[2022-03-28] MEDS ORDERED: HYDROCODONE/ACETAMINOPHEN 7.5/325MG TABLET PO ONE (06:45)
[2022-03-28 06:46] LABS: PLATELET ESTIMATE NORMAL
[2022-03-28] MEDS ORDERED: HYDROMORPHONE HCL/PF 2MG/ML CPJ IM ONE (08:00)
[2022-03-28] MEDS ORDERED: ALTEPLASE 2MG/VIAL ITC NR (09:45)
[2022-03-28] MEDS ORDERED: ACETAMINOPHEN 325MG TABLET PO PRN (10:30)
[2022-03-28] MEDS ORDERED: MAGNESIUM/ALUMINUM HYDROXIDE/SIMETHICONE 30ML UDC PO PRN (10:30)
[2022-03-28] MEDS ORDERED: DOCUSATE SODIUM 100MG CAPSULE PO PRN (10:30)
[2022-03-28] MEDS ORDERED: IPRATROPIUM/ALBUTEROL 0.5-3(2.5)MG/3ML NEB NEB PRN (10:30)
[2022-03-28] MEDS ORDERED: GUAIFENESIN 200MG/10ML SUGAR FREE UDC PO PRN (10:30)
[2022-03-28] MEDS ORDERED: ONDANSETRON HCL 4MG/2ML INJ IV PRN (10:30)
[2022-03-28] MEDS ORDERED: ZOLPIDEM TARTRATE 5MG TABLET PO PRN (10:30)
[2022-03-28] MEDS ORDERED: NALOXONE HCL 0.4MG/ML VIAL IV PRN (10:45)
[2022-03-28] MEDS ORDERED: NITROGLYCERIN 0.4MG TABLET SL SL PRN (11:00)
[2022-03-28] MEDS: HYDROCODONE/ACETAMINOPHEN 10/325MG TABLET PO PRN ×2 (11:24→18:06)
[2022-03-28 11:26] LABS: T4 FREE 0.59 ng/dL (0.76-1.46)
[2022-03-28 11:59] LABS: FOLIC ACID (FOLATE) SERUM 9.4 ng/mL (>5.38)
[2022-03-28] MEDS: ENOXAPARIN 30MG/0.3ML SYR SUBCUT SCH (12:21)
[2022-03-28] MEDS: CLONIDINE 0.1MG TABLET PO PRN ×2 (13:29→18:06)
[2022-03-28] MEDS: SEVELAMER CARBONATE 800 MG TABLET PO SCH ×2 (13:38→18:06)
[2022-03-28 13:53] LABS: HEPATITIS B SURFACE ANTIGEN NEGATIVE
[2022-03-28] MEDS ORDERED: LIDOCAINE HCL 1% 10 MG/ML 10ML VIAL ONE (14:15)
[2022-03-28] MEDS ORDERED: IOHEXOL-350 100 ML BOTTLE ONE (15:02)
[2022-03-28 17:09] LABS: CREATINE KINASE 65 IU/L (39-308); CREATINE KINASE MB FRACTION 2.3 ng/mL (0.5-3.6)
[2022-03-28 20:00] VITALS: BP 145/70
[2022-03-28] MEDS: AMLODIPINE 5MG TABLET PO SCH (21:17)
[2022-03-28] MEDS: FAMOTIDINE 20MG TABLET PO SCH (21:17)
[2022-03-28] MEDS: MORPHINE SULFATE 2 MG/ML CPJ (NOT FOR IM USE) IV PRN (21:18)
[2022-03-29] VITALS (14 sets, daily range): BP systolic 124–159; BP diastolic 62–97
[2022-03-29] MEDS: MORPHINE SULFATE 2 MG/ML CPJ (NOT FOR IM USE) IV PRN (04:00)
[2022-03-29] MEDS: HYDROCODONE/ACETAMINOPHEN 10/325MG TABLET PO PRN ×2 (08:55→17:18)
[2022-03-29] MEDS ORDERED: HYDROMORPHONE HCL/PF 2MG/ML CPJ IV PRN (09:15)
[2022-03-29] MEDS: DIPHENHYDRAMINE 25MG CAPSULE PO PRN ×2 (09:47→21:12)
[2022-03-29 10:42] LABS: BASOPHILS % 1.2 % (0.0-2.0); EOSINOPHILS % 1.3 % (0.0-5.0); HEMATOCRIT. 27.2 % (42.0-52.0); HEMOGLOBIN. 8.8 g/dL (14.0-18.0); LYMPHOCYTES % 18.4 % (20.0-50.0); MEAN CORPUSCULAR HEMOGLOBIN 29.5 pg (28.0-32.0); MEAN CORPUSCULAR VOLUME 90.9 fL (80.0-94.0); MEAN PLATELET VOLUME 7.7 fl (7.4-10.4); MONOCYTES % 13.2 % (2.0-8.0); NEUTROPHILS % 65.9 % (40.0-76.0); PLATELET 213 x1000/uL (130-400); RED BLOOD CELL COUNT 2.99 mill/uL (4.7-6.1); RED CELL DISTRIBUTION WIDTH 18.2 % (11.6-14.6)
[2022-03-29 10:47] LABS: CHLORIDE 95 mEq/L (98-107)
[2022-03-29 10:59] LABS: PHOSPHORUS 7.5 mg/dL (2.5-4.9)
[2022-03-29] MEDS ORDERED: METHADONE HCL 10MG TABLET PO NR (11:30)
[2022-03-29] MEDS: LEVOTHYROXINE SODIUM 50MCG TABLET PO SCH (11:38)
[2022-03-29] MEDS: ASPIRIN 325MG EC TABLET PO SCH (11:38)
[2022-03-29] MEDS: GABAPENTIN 100MG CAPSULE PO SCH ×3 (11:39→21:12)
[2022-03-29] MEDS: AMLODIPINE 5MG TABLET PO SCH ×2 (11:39→21:13)
[2022-03-29] MEDS: SEVELAMER CARBONATE 800 MG TABLET PO SCH ×3 (11:39→17:20)
[2022-03-29] MEDS: ENOXAPARIN 30MG/0.3ML SYR SUBCUT SCH (11:40)
[2022-03-29] MEDS: FAMOTIDINE 20MG TABLET PO SCH (21:13)
[2022-03-29] MEDS: METHADONE HCL 10MG TABLET PO SCH (21:13)
[2022-03-30] VITALS (15 sets, daily range): BP systolic 93–189; BP diastolic 63–99
[2022-03-30] MEDS: HYDROCODONE/ACETAMINOPHEN 10/325MG TABLET PO PRN ×2 (06:27→21:53)
[2022-03-30] MEDS: LEVOTHYROXINE SODIUM 50MCG TABLET PO SCH (06:28)
[2022-03-30] MEDS: CLONIDINE 0.1MG TABLET PO PRN ×2 (06:28→18:24)
[2022-03-30] MEDS: GABAPENTIN 100MG CAPSULE PO SCH ×3 (06:28→21:29)
[2022-03-30 07:15] LABS: HEMOGLOBIN. 9.2 g/dL (14.0-18.0); MEAN CORPUSCULAR HEMOGLOBIN 29.9 pg (28.0-32.0); MEAN CORPUSCULAR VOLUME 90.6 fL (80.0-94.0); MEAN PLATELET VOLUME 7.6 fl (7.4-10.4); PLATELET 206 x1000/uL (130-400); RED BLOOD CELL COUNT 3.09 mill/uL (4.7-6.1); RED CELL DISTRIBUTION WIDTH 17.8 % (11.6-14.6)
[2022-03-30 07:50] LABS: CHLORIDE 97 mEq/L (98-107)
[2022-03-30] MEDS: METHADONE HCL 10MG TABLET PO SCH ×2 (08:32→20:17)
[2022-03-30] MEDS: ENOXAPARIN 30MG/0.3ML SYR SUBCUT SCH (08:32)
[2022-03-30] MEDS: AMLODIPINE 5MG TABLET PO SCH ×2 (08:32→20:17)
[2022-03-30] MEDS: SEVELAMER CARBONATE 800 MG TABLET PO SCH ×3 (08:33→17:33)
[2022-03-30] MEDS: ASPIRIN 325MG EC TABLET PO SCH (08:33)
[2022-03-30] MEDS: DIPHENHYDRAMINE 25MG CAPSULE PO PRN (09:32)
[2022-03-30] MEDS ORDERED: ALBUTEROL (0.083%) 2.5MG/3ML NEB HHN PRN (13:00)
[2022-03-30] MEDS ORDERED: IPRATROPIUM BROMIDE (0.02%) 0.5MG/2.5ML NEB HHN PRN (13:00)
[2022-03-30] MEDS: MUPIROCIN 2% OINT 22GM NS SCH ×2 (13:12→20:17)
[2022-03-30 18:21] LABS: PLATELET ESTIMATE NORMAL
[2022-03-30] MEDS: FAMOTIDINE 20MG TABLET PO SCH (20:17)
[2022-03-31] VITALS (11 sets, daily range): BP systolic 93–170; BP diastolic 47–85
[2022-03-31] MEDS: HYDROCODONE/ACETAMINOPHEN 10/325MG TABLET PO PRN ×4 (02:30→20:17)
[2022-03-31] MEDS: LEVOTHYROXINE SODIUM 50MCG TABLET PO SCH (06:20)
[2022-03-31] MEDS: GABAPENTIN 100MG CAPSULE PO SCH ×3 (06:24→21:02)
[2022-03-31] MEDS: METHADONE HCL 10MG TABLET PO SCH ×2 (08:25→20:16)
[2022-03-31] MEDS: SEVELAMER CARBONATE 800 MG TABLET PO SCH ×3 (08:25→18:35)
[2022-03-31] MEDS: AMLODIPINE 5MG TABLET PO SCH ×2 (08:25→20:40)
[2022-03-31] MEDS: ASPIRIN 325MG EC TABLET PO SCH (08:25)
[2022-03-31] MEDS: ENOXAPARIN 30MG/0.3ML SYR SUBCUT SCH (08:26)
[2022-03-31] MEDS: MUPIROCIN 2% OINT 22GM NS SCH ×2 (08:26→20:56)
[2022-03-31] MEDS: DIPHENHYDRAMINE 25MG CAPSULE PO PRN (10:03)
[2022-03-31 18:06] LABS: HEMATOCRIT. 25.7 % (42.0-52.0); HEMOGLOBIN. 8.3 g/dL (14.0-18.0); MEAN CORPUSCULAR HEMOGLOBIN 29.4 pg (28.0-32.0); MEAN CORPUSCULAR VOLUME 91.4 fL (80.0-94.0); MEAN PLATELET VOLUME 7.6 fl (7.4-10.4); PLATELET 172 x1000/uL (130-400); RED BLOOD CELL COUNT 2.82 mill/uL (4.7-6.1); RED CELL DISTRIBUTION WIDTH 17.8 % (11.6-14.6)
[2022-03-31 18:39] LABS: PLATELET ESTIMATE NORMAL
[2022-03-31] MEDS: FAMOTIDINE 20MG TABLET PO SCH (20:39)
[2022-04-01] VITALS (15 sets, daily range): BP systolic 121–168; BP diastolic 43–98
[2022-04-01] MEDS: HYDROCODONE/ACETAMINOPHEN 10/325MG TABLET PO PRN ×3 (00:51→18:24)
[2022-04-01] MEDS: GABAPENTIN 100MG CAPSULE PO SCH ×3 (05:03→20:29)
[2022-04-01] MEDS: LEVOTHYROXINE SODIUM 75MCG TABLET PO SCH (06:27)
[2022-04-01 07:13] LABS: HEMATOCRIT. 24.2 % (42.0-52.0); HEMOGLOBIN. 7.8 g/dL (14.0-18.0); MEAN CORPUSCULAR HEMOGLOBIN 29.6 pg (28.0-32.0); MEAN CORPUSCULAR VOLUME 91.5 fL (80.0-94.0); MEAN PLATELET VOLUME 7.5 fl (7.4-10.4); PLATELET 155 x1000/uL (130-400); RED BLOOD CELL COUNT 2.65 mill/uL (4.7-6.1); RED CELL DISTRIBUTION WIDTH 17.4 % (11.6-14.6)
[2022-04-01] MEDS: SEVELAMER CARBONATE 800 MG TABLET PO SCH ×3 (07:40→18:25)
[2022-04-01] MEDS: MUPIROCIN 2% OINT 22GM NS SCH (09:00)
[2022-04-01] MEDS ORDERED: GABA300C MT (09:05)
[2022-04-01] MEDS ORDERED: LEVO88TA2 MT (09:06)
[2022-04-01] MEDS: DIPHENHYDRAMINE 25MG CAPSULE PO PRN (10:40)
[2022-04-01] MEDS: METHADONE HCL 10MG TABLET PO SCH ×2 (14:25→20:30)
[2022-04-01] MEDS: AMLODIPINE 5MG TABLET PO SCH ×2 (14:25→20:30)
[2022-04-01] MEDS ORDERED: ENOXAPARIN 80MG/0.8ML SYR SUBCUT NR (17:00)
[2022-04-01 18:24] LABS: INR 1.1; PROTHROMBIN TIME 11.9 sec (9.6-11.0)
[2022-04-01] MEDS: FAMOTIDINE 20MG TABLET PO SCH (20:30)
[2022-04-02] VITALS (7 sets, daily range): BP systolic 99–185; BP diastolic 47–83
[2022-04-02] MEDS: CLONIDINE 0.1MG TABLET PO PRN (01:30)
[2022-04-02] MEDS: MUPIROCIN 2% OINT 22GM NS SCH ×3 (01:32→21:20)
[2022-04-02] MEDS: GABAPENTIN 100MG CAPSULE PO SCH ×3 (05:32→21:06)
[2022-04-02] MEDS: LEVOTHYROXINE SODIUM 75MCG TABLET PO SCH (05:32)
[2022-04-02 07:13] LABS: HEMATOCRIT. 24.6 % (42.0-52.0); HEMOGLOBIN. 8.1 g/dL (14.0-18.0); MEAN CORPUSCULAR HEMOGLOBIN 29.9 pg (28.0-32.0); MEAN CORPUSCULAR VOLUME 90.6 fL (80.0-94.0); MEAN PLATELET VOLUME 7.8 fl (7.4-10.4); PLATELET 162 x1000/uL (130-400); RED BLOOD CELL COUNT 2.71 mill/uL (4.7-6.1)
[2022-04-02 07:29] LABS: PHOSPHORUS 5.8 mg/dL (2.5-4.9)
[2022-04-02] MEDS: AMLODIPINE 5MG TABLET PO SCH ×2 (08:05→21:06)
[2022-04-02] MEDS: METHADONE HCL 10MG TABLET PO SCH ×2 (08:06→21:07)
[2022-04-02] MEDS: SEVELAMER CARBONATE 800 MG TABLET PO SCH ×3 (08:06→17:01)
[2022-04-02] MEDS: DIPHENHYDRAMINE 25MG CAPSULE PO PRN (09:51)
[2022-04-02 13:41] LABS: PLATELET ESTIMATE NORMAL
[2022-04-02] MEDS: ACETAMINOPHEN 325MG TABLET PO PRN ×2 (14:29→23:23)
[2022-04-02 16:30] LABS: PLATELET ESTIMATE NORMAL
[2022-04-02] MEDS: ENOXAPARIN 80MG/0.8ML SYR SUBCUT SCH (17:21)
[2022-04-02] MEDS: FAMOTIDINE 20MG TABLET PO SCH (21:07)
[2022-04-03] VITALS (14 sets, daily range): BP systolic 110–156; BP diastolic 46–103
[2022-04-03] MEDS: HYDROCODONE/ACETAMINOPHEN 10/325MG TABLET PO PRN (02:56)
[2022-04-03] MEDS: SEVELAMER CARBONATE 800 MG TABLET PO SCH ×3 (06:13→17:42)
[2022-04-03] MEDS: LEVOTHYROXINE SODIUM 75MCG TABLET PO SCH (06:13)
[2022-04-03] MEDS: GABAPENTIN 100MG CAPSULE PO SCH (06:14)
[2022-04-03] MEDS: AMLODIPINE 5MG TABLET PO SCH ×2 (08:54→21:10)
[2022-04-03] MEDS: CLONIDINE 0.1MG TABLET PO PRN (08:54)
[2022-04-03] MEDS: METHADONE HCL 10MG TABLET PO SCH ×2 (08:54→21:09)
[2022-04-03] MEDS: MUPIROCIN 2% OINT 22GM NS SCH ×2 (08:55→21:05)
[2022-04-03 11:10] LABS: HEMATOCRIT. 24.2 % (42.0-52.0); HEMOGLOBIN. 7.8 g/dL (14.0-18.0); MEAN CORPUSCULAR HEMOGLOBIN 29.4 pg (28.0-32.0); MEAN CORPUSCULAR VOLUME 91.2 fL (80.0-94.0); MEAN PLATELET VOLUME 7.9 fl (7.4-10.4); PLATELET 153 x1000/uL (130-400); RED BLOOD CELL COUNT 2.65 mill/uL (4.7-6.1); RED CELL DISTRIBUTION WIDTH 17.6 % (11.6-14.6)
[2022-04-03] MEDS: GABAPENTIN 300MG CAPSULE PO SCH ×2 (13:21→21:10)
[2022-04-03] MEDS: ENOXAPARIN 80MG/0.8ML SYR SUBCUT SCH (17:42)
[2022-04-03] MEDS: FAMOTIDINE 20MG TABLET PO SCH (21:10)
[2022-04-04] VITALS (11 sets, daily range): BP systolic 112–160; BP diastolic 36–115
[2022-04-04] MEDS: GABAPENTIN 300MG CAPSULE PO SCH ×3 (05:37→22:00)
[2022-04-04] MEDS: LEVOTHYROXINE SODIUM 75MCG TABLET PO SCH (06:12)
[2022-04-04] MEDS: SEVELAMER CARBONATE 800 MG TABLET PO SCH ×4 (07:40→17:40)
[2022-04-04] MEDS: AMLODIPINE 5MG TABLET PO SCH ×3 (08:37→21:00)
[2022-04-04] MEDS: MUPIROCIN 2% OINT 22GM NS SCH ×2 (08:38→22:00)
[2022-04-04] MEDS: ACETAMINOPHEN 325MG TABLET PO PRN (09:30)
[2022-04-04] MEDS: CLONIDINE 0.1MG TABLET PO PRN (09:30)
[2022-04-04] MEDS: DIPHENHYDRAMINE 25MG CAPSULE PO PRN (11:15)
[2022-04-04] MEDS ORDERED: THROMBIN (BOVINE) 5000 UNITS/VIAL TOP ONE (12:51)
[2022-04-04] MEDS ORDERED: POLYMYXIN B SULFATE 500000 UNITS/VIAL ONE (12:51)
[2022-04-04] MEDS ORDERED: LIDOCAINE HCL 1% 20ML VIAL (Pyxis) INJ ONE (12:51)
[2022-04-04] MEDS ORDERED: HEPARIN SODIUM 1,000 UNIT/1ML VIAL IV ONE (12:51)
[2022-04-04] MEDS ORDERED: BUPIVACAINE HCL/PF 0.5% (5MG/ML) 10ML ONE ×2 (12:51→12:53)
[2022-04-04] MEDS ORDERED: DEXTROSE 50% WATER 50ML SYRINGE IV NR (14:00)
[2022-04-04 14:01] LABS: PLATELET ESTIMATE NORMAL
[2022-04-04] MEDS ORDERED: ETOMIDATE 2MG/ML 10ML VIAL IV ONE (14:32)
[2022-04-04] MEDS ORDERED: FENTANYL CITRATE/PF 50MCG/ML 2ML VIAL ONE (14:33)
[2022-04-04] MEDS ORDERED: MIDAZOLAM HCL 2 MG/2 ML VIAL ONE ×2 (14:33→15:36)
[2022-04-04] MEDS ORDERED: PHENYLEPHRINE HCL 10 MG/ML 1ML (IV VIAL) IV ONE (15:00)
[2022-04-04] MEDS ORDERED: NALOXONE HCL 0.4 MG/ML 1ML VIAL ONE ×2 (15:24→15:26)
[2022-04-04] MEDS ORDERED: ALBUTEROL 6.7GM HFA INHALER ONE (15:35)
[2022-04-04] MEDS ORDERED: LORAZEPAM 2MG/ML CPJ IV NR (16:00)
[2022-04-04] MEDS ORDERED: HALOPERIDOL LACTATE 5MG/ML VIAL IM NR (17:00)
[2022-04-04] MEDS: ENOXAPARIN 80MG/0.8ML SYR SUBCUT SCH (18:00)
[2022-04-04 20:35] LABS: HEMATOCRIT. 22.9 % (42.0-52.0); HEMOGLOBIN. 7.4 g/dL (14.0-18.0); MEAN CORPUSCULAR HEMOGLOBIN 29.3 pg (28.0-32.0); MEAN CORPUSCULAR VOLUME 90.5 fL (80.0-94.0); PLATELET 133 x1000/uL (130-400); RED BLOOD CELL COUNT 2.53 mill/uL (4.7-6.1)
[2022-04-04] MEDS: FAMOTIDINE 20MG TABLET PO SCH (21:00)
[2022-04-04 21:27] LABS: PLATELET ESTIMATE NORMAL
[2022-04-05] VITALS (98 sets, daily range): BP systolic 65–163; BP diastolic 19–120
[2022-04-05 05:38] LABS: BASOPHILS % 0.5 % (0.0-2.0); EOSINOPHILS % 0.5 % (0.0-5.0); LYMPHOCYTES % 11.4 % (20.0-50.0); MEAN CORPUSCULAR HEMOGLOBIN 29.4 pg (28.0-32.0); MEAN CORPUSCULAR VOLUME 90.2 fL (80.0-94.0); MEAN PLATELET VOLUME 7.9 fl (7.4-10.4); NEUTROPHILS % 73.6 % (40.0-76.0); PLATELET 132 x1000/uL (130-400); RED BLOOD CELL COUNT 2.03 mill/uL (4.7-6.1); RED CELL DISTRIBUTION WIDTH 16.7 % (11.6-14.6)
[2022-04-05] MEDS: LEVOTHYROXINE SODIUM 75MCG TABLET PO SCH (05:53)
[2022-04-05] MEDS: GABAPENTIN 300MG CAPSULE PO SCH ×3 (05:53→21:04)
[2022-04-05 06:01] LABS: HEMATOCRIT. 18.3 % (42.0-52.0)
[2022-04-05] MEDS: AMLODIPINE 5MG TABLET PO SCH ×2 (09:00→21:00)
[2022-04-05] MEDS: SEVELAMER CARBONATE 800 MG TABLET PO SCH ×3 (09:59→17:00)
[2022-04-05] MEDS: MUPIROCIN 2% OINT 22GM NS SCH ×2 (09:59→21:03)
[2022-04-05] MEDS ORDERED: DESMOPRESSIN ACETATE IV SCH (12:00)
[2022-04-05] MEDS ORDERED: SODIUM CHLORIDE 0.9% IV SCH (12:00)
[2022-04-05] MEDS ORDERED: DESMOPRESSIN ACETATE 4MCG/ML AMP IV ONE (12:00)
[2022-04-05] MEDS: DEXTROSE 50% WATER 50ML SYRINGE IV PRN ×2 (17:33→21:02)
[2022-04-05] MEDS: INSULIN LISPRO 100 UNITS/ML SUBCUT SCH (21:00)
[2022-04-05] MEDS: FAMOTIDINE 20MG TABLET PO SCH (21:00)
[2022-04-05] MEDS: BLOOD SUGAR DIAGNOSTIC STRIP TEST SCH (21:03)
[2022-04-05 22:08] LABS: MEAN CORPUSCULAR HEMOGLOBIN 29.8 pg (28.0-32.0); MEAN CORPUSCULAR VOLUME 89.9 fL (80.0-94.0); PLATELET 123 x1000/uL (130-400); RED BLOOD CELL COUNT 2.22 mill/uL (4.7-6.1)
[2022-04-05 22:27] LABS: HEMOGLOBIN 6.6 g/dL (14.0-18.0)
[2022-04-06] VITALS (62 sets, daily range): BP systolic 39–222; BP diastolic 17–148
[2022-04-06] MEDS: LEVOTHYROXINE SODIUM 75MCG TABLET PO SCH (05:51)
[2022-04-06] MEDS: BLOOD SUGAR DIAGNOSTIC STRIP TEST SCH ×4 (05:51→20:39)
[2022-04-06] MEDS: GABAPENTIN 300MG CAPSULE PO SCH ×3 (05:51→21:30)
[2022-04-06] MEDS: DEXTROSE 50% WATER 50ML SYRINGE IV PRN (05:54)
[2022-04-06] MEDS: SEVELAMER CARBONATE 800 MG TABLET PO SCH ×3 (06:44→18:38)
[2022-04-06] MEDS: INSULIN LISPRO 100 UNITS/ML SUBCUT SCH ×4 (06:45→20:39)
[2022-04-06 07:47] LABS: BASOPHILS % 0.6 % (0.0-2.0); EOSINOPHILS % 0.6 % (0.0-5.0); HEMOGLOBIN. 8.2 g/dL (14.0-18.0); LYMPHOCYTES % 11.8 % (20.0-50.0); MEAN CORPUSCULAR HEMOGLOBIN 30.6 pg (28.0-32.0); MEAN CORPUSCULAR VOLUME 89.5 fL (80.0-94.0); MEAN PLATELET VOLUME 8.3 fl (7.4-10.4); MONOCYTES % 13.6 % (2.0-8.0); NEUTROPHILS % 73.4 % (40.0-76.0); PLATELET 123 x1000/uL (130-400); RED BLOOD CELL COUNT 2.68 mill/uL (4.7-6.1); RED CELL DISTRIBUTION WIDTH 16.7 % (11.6-14.6)
[2022-04-06] MEDS ORDERED: DEXT 5%/LACTATED RINGERS 1,000 ML IV SCH (08:00)
[2022-04-06] MEDS: AMLODIPINE 5MG TABLET PO SCH ×2 (09:00→21:30)
[2022-04-06] MEDS: DEXT 5%/0.45% NACL 1000ML 1,000 ML IV SCH (10:06)
[2022-04-06] MEDS: MUPIROCIN 2% OINT 22GM NS SCH (10:06)
[2022-04-06] MEDS ORDERED: LIDOCAINE HCL 1% 10 MG/ML 10ML VIAL ONE (12:30)
[2022-04-06] MEDS: MUPIROCIN 2% OINT 22GM TOP SCH (21:00)
[2022-04-06] MEDS: FAMOTIDINE 20MG TABLET PO SCH (21:30)
[2022-04-07] VITALS (22 sets, daily range): BP systolic 98–164; BP diastolic 35–92
[2022-04-07] MEDS: BLOOD SUGAR DIAGNOSTIC STRIP TEST SCH ×5 (05:36→21:27)
[2022-04-07] MEDS: INSULIN LISPRO 100 UNITS/ML SUBCUT SCH ×5 (06:17→21:00)
[2022-04-07] MEDS: SEVELAMER CARBONATE 800 MG TABLET PO SCH ×3 (06:20→17:48)
[2022-04-07] MEDS: GABAPENTIN 300MG CAPSULE PO SCH ×3 (06:20→21:27)
[2022-04-07] MEDS: LEVOTHYROXINE SODIUM 75MCG TABLET PO SCH (06:20)
[2022-04-07 06:45] LABS: BASOPHILS % 0.4 % (0.0-2.0); EOSINOPHILS % 0.4 % (0.0-5.0); HEMATOCRIT. 22.8 % (42.0-52.0); HEMOGLOBIN. 7.9 g/dL (14.0-18.0); LYMPHOCYTES % 12.5 % (20.0-50.0); MEAN CORPUSCULAR HEMOGLOBIN 30.1 pg (28.0-32.0); MEAN CORPUSCULAR VOLUME 87.3 fL (80.0-94.0); MEAN PLATELET VOLUME 8.4 fl (7.4-10.4); MONOCYTES % 12.7 % (2.0-8.0); PLATELET 119 x1000/uL (130-400); RED BLOOD CELL COUNT 2.61 mill/uL (4.7-6.1); RED CELL DISTRIBUTION WIDTH 16.7 % (11.6-14.6)
[2022-04-07] MEDS: DEXT 5%/0.45% NACL 1000ML 1,000 ML IV SCH (08:00)
[2022-04-07] MEDS: AMLODIPINE 5MG TABLET PO SCH ×2 (10:52→21:00)
[2022-04-07] MEDS: MUPIROCIN 2% OINT 22GM TOP SCH ×2 (10:53→21:29)
[2022-04-07] MEDS: FAMOTIDINE 20MG TABLET PO SCH (21:27)
[2022-04-08] VITALS (20 sets, daily range): BP systolic 93–178; BP diastolic 46–105
[2022-04-08] MEDS: GABAPENTIN 300MG CAPSULE PO SCH ×3 (05:44→21:13)
[2022-04-08] MEDS ORDERED: DESMOPRESSIN ACETATE IVPB 20 MCG in SODIUM CHLORIDE 0.9% 50 ML IV NR (06:00)
[2022-04-08] MEDS: INSULIN LISPRO 100 UNITS/ML SUBCUT SCH ×3 (06:20→21:00)
[2022-04-08] MEDS: LEVOTHYROXINE SODIUM 75MCG TABLET PO SCH (06:20)
[2022-04-08] MEDS: BLOOD SUGAR DIAGNOSTIC STRIP TEST SCH ×4 (06:20→21:13)
[2022-04-08] MEDS: SEVELAMER CARBONATE 800 MG TABLET PO SCH ×3 (06:20→17:14)
[2022-04-08 06:30] LABS: HEMATOCRIT 23.7 % (42.0-52.0); HEMOGLOBIN 8.3 g/dL (14.0-18.0)
[2022-04-08] MEDS: DIPHENHYDRAMINE 25MG CAPSULE PO PRN (08:16)
[2022-04-08] MEDS: AMLODIPINE 5MG TABLET PO SCH ×3 (08:49→21:13)
[2022-04-08] MEDS: MUPIROCIN 2% OINT 22GM TOP SCH ×2 (08:50→21:22)
[2022-04-08] MEDS: DEXT 5%/0.45% NACL 1000ML 1,000 ML IV SCH (08:51)
[2022-04-08] MEDS: DEXTROSE 50% WATER 50ML SYRINGE IV PRN (13:18)
[2022-04-08] MEDS ORDERED: LIDOCAINE HCL 1% 10 MG/ML 10ML VIAL ONE (13:31)
[2022-04-08] MEDS ORDERED: HEPARIN 1000 UNITS/ML 10ML ONE (13:31)
[2022-04-08] MEDS ORDERED: IOHEXOL-300 100 ML BOTTLE ONE (13:32)
[2022-04-08] MEDS ORDERED: CEFAZOLIN 1000MG PREMIX 50 ML IV NR (14:00)
[2022-04-08] MEDS: FAMOTIDINE 20MG TABLET PO SCH (21:13)
[2022-04-09] VITALS (16 sets, daily range): BP systolic 99–176; BP diastolic 40–93
[2022-04-09] MEDS: GABAPENTIN 300MG CAPSULE PO SCH ×2 (05:35→12:54)
[2022-04-09] MEDS: CLONIDINE 0.1MG TABLET PO PRN (05:35)
[2022-04-09] MEDS: LEVOTHYROXINE SODIUM 75MCG TABLET PO SCH (05:35)
[2022-04-09] MEDS: BLOOD SUGAR DIAGNOSTIC STRIP TEST SCH ×3 (06:20→16:04)
[2022-04-09] MEDS: INSULIN LISPRO 100 UNITS/ML SUBCUT SCH ×3 (06:20→16:04)
[2022-04-09] MEDS: DEXT 5%/0.45% NACL 1000ML 1,000 ML IV SCH (08:00)
[2022-04-09 08:43] LABS: BASOPHILS % 0.7 % (0.0-2.0); EOSINOPHILS % 0.9 % (0.0-5.0); LYMPHOCYTES % 13.4 % (20.0-50.0); MEAN CORPUSCULAR HEMOGLOBIN 29.7 pg (28.0-32.0); MEAN CORPUSCULAR VOLUME 88.8 fL (80.0-94.0); MEAN PLATELET VOLUME 7.9 fl (7.4-10.4); MONOCYTES % 14.7 % (2.0-8.0); NEUTROPHILS % 70.3 % (40.0-76.0); PLATELET 131 x1000/uL (130-400); RED BLOOD CELL COUNT 2.14 mill/uL (4.7-6.1); RED CELL DISTRIBUTION WIDTH 16.6 % (11.6-14.6)
[2022-04-09] MEDS: AMLODIPINE 5MG TABLET PO SCH (08:45)
[2022-04-09] MEDS: SEVELAMER CARBONATE 800 MG TABLET PO SCH ×3 (08:46→16:28)
[2022-04-09] MEDS: MUPIROCIN 2% OINT 22GM TOP SCH (08:47)
[2022-04-09 08:48] LABS: HEMOGLOBIN. 6.4 g/dL (14.0-18.0)
[2022-04-09 12:23] LABS: HEMOGLOBIN 6.3 g/dL (14.0-18.0)
[2022-04-09 12:24] LABS: HEMATOCRIT 18.9 % (42.0-52.0)
[2022-04-09] MEDS: ACETAMINOPHEN 325MG TABLET PO PRN (16:28)
[2022-04-09 17:32] LABS: HEMATOCRIT 25.1 % (42.0-52.0); HEMOGLOBIN 8.4 g/dL (14.0-18.0)
== END 2022-04-09 18:25 | disposition left against medical advice (07) | DRG 252 ==
LOC: ER 00:12 → 8WST 09:45 → EDBEDREQSVC 09:50 → EDBEDREQ 09:50 → EDBEDREQSVC 10:27 → ENRESERV 17:45 → 8WST 04-03 13:58 → MICUNO 04-04 21:05 → 8WST 04-07 16:51
PROVIDERS: ADMIT Internal Medicine; ATTEND Internal Medicine
PROC: 02HV33Z Insertion of Infusion Device into Superior Vena Cava, Percutaneous Approach (ICD-10-PCS; 2022-03-28)
PROC: B5181ZA Fluoroscopy of Superior Vena Cava using Low Osmolar Contrast, Guidance (ICD-10-PCS; 2022-03-28)
PROC: B548ZZA Ultrasonography of Superior Vena Cava, Guidance (ICD-10-PCS; 2022-03-28)
PROC: 5A1D70Z Performance of Urinary Filtration, Intermittent, Less than 6 Hours Per Day (ICD-10-PCS; 2022-03-29)
PROC: 5A1D70Z Performance of Urinary Filtration, Intermittent, Less than 6 Hours Per Day (ICD-10-PCS; 2022-03-30)
PROC: 5A1D70Z Performance of Urinary Filtration, Intermittent, Less than 6 Hours Per Day (ICD-10-PCS; 2022-03-31)
PROC: 5A1D70Z Performance of Urinary Filtration, Intermittent, Less than 6 Hours Per Day (ICD-10-PCS; 2022-04-01)
PROC: 0JBP0ZZ Excision of Left Lower Leg Subcutaneous Tissue and Fascia, Open Approach (ICD-10-PCS; 2022-04-02)
PROC: 5A1D70Z Performance of Urinary Filtration, Intermittent, Less than 6 Hours Per Day (ICD-10-PCS; 2022-04-03)
PROC: 05LF0ZZ Occlusion of Left Cephalic Vein, Open Approach (ICD-10-PCS; principal; 2022-04-04)
PROC: 5A1D70Z Performance of Urinary Filtration, Intermittent, Less than 6 Hours Per Day (ICD-10-PCS; 2022-04-04)
PROC: 3E053GC Introduction of Other Therapeutic Substance into Peripheral Artery, Percutaneous Approach (ICD-10-PCS; 2022-04-04)
PROC: 5A1D70Z Performance of Urinary Filtration, Intermittent, Less than 6 Hours Per Day (ICD-10-PCS; 2022-04-05)
PROC: 30233N1 Transfusion of Nonautologous Red Blood Cells into Peripheral Vein, Percutaneous Approach (ICD-10-PCS; 2022-04-05)
PROC: 0HQCXZZ Repair Left Upper Arm Skin, External Approach (ICD-10-PCS; 2022-04-06)
PROC: 5A1D70Z Performance of Urinary Filtration, Intermittent, Less than 6 Hours Per Day (ICD-10-PCS; 2022-04-08)
PROC: 057D3ZZ Dilation of Right Cephalic Vein, Percutaneous Approach (ICD-10-PCS; 2022-04-08)
PROC: B51W1ZZ Fluoroscopy of Dialysis Shunt/Fistula using Low Osmolar Contrast (ICD-10-PCS; 2022-04-08)
DX: T82.898A Other specified complication of vascular prosthetic devices, implants and grafts, initial encounter (principal); G92.8 Other toxic encephalopathy; N18.6 End stage renal disease; I13.2 Hypertensive heart and chronic kidney disease with heart failure and with stage 5 chronic kidney disease, or end stage renal disease; D62 Acute posthemorrhagic anemia; E44.0 Moderate protein-calorie malnutrition; I82.C12 Acute embolism and thrombosis of left internal jugular vein; I87.1 Compression of vein; E03.9 Hypothyroidism, unspecified; E11.22 Type 2 diabetes mellitus with diabetic chronic kidney disease; E87.5 Hyperkalemia; S81.812A Laceration without foreign body, left lower leg, initial encounter; I50.9 Heart failure, unspecified; Z20.822 Contact with and (suspected) exposure to COVID-19; E11.51 Type 2 diabetes mellitus with diabetic peripheral angiopathy without gangrene; I72.1 Aneurysm of artery of upper extremity; I25.10 Atherosclerotic heart disease of native coronary artery without angina pectoris; Z68.25 Body mass index [BMI] 25.0-25.9, adult; Z99.2 Dependence on renal dialysis; Z68.26 Body mass index [BMI] 26.0-26.9, adult; Z86.718 Personal history of other venous thrombosis and embolism; Z95.1 Presence of aortocoronary bypass graft; Y71.2 Prosthetic and other implants, materials and accessory cardiovascular devices associated with adverse incidents; Y83.2 Surgical operation with anastomosis, bypass or graft as the cause of abnormal reaction of the patient, or of later complication, without mention of misadventure at the time of the procedure; Z53.29 Procedure and treatment not carried out because of patient's decision for other reasons; W19.XXXA Unspecified fall, initial encounter; Y93.89 Activity, other specified; Y99.8 Other external cause status
CPT/HCPCS: 36415; 36902; 70544; 70553; 71045; 73130; 73206; 73562; 76536; 76937; 77001; 80048; 80053; 80061; 82140; 82550; 82553; 82607; 82746; 82962; 83036; 83540; 83550; 83605; 83735; 83880; 84100; 84439; 84443; 84484; 85014; 85018; 85025; 85027; 86705; 86709; 86803; 86850; 86900; 86920; 87340; 87426; 87804; 90935; 92610; 93005; 93880; 93922; 93923; 93970; 97116; 97162; 97164; 97166; 97168; 97530; 99285; A6261; C1887; G0378; J0690; J1170; J1630; J1644; J1650; J2060; J2250; J2270; J2310; J2370; J2597; J2997; J3010; J3490; P9016; Q0163; Q9967